=== PATIENT | male | born 2000 | race Caucasian/White ===

== ENCOUNTER 2018-08-23 18:19 | Emergency (ER) | payer SELFPAY ==
[~2018-08-23] VITALS: Ht 170.2 cm; Wt 60.5 kg
[2018-08-23 18:28] VITALS: TEMP 98.9
[2018-08-23 21:11] VITALS: BP 124/72; PULSE 72
== END 2018-08-23 20:32 | disposition home or self-care (01) ==
LOC: COL.ER 18:19
DX: S93.601A Unspecified sprain of right foot, initial encounter (principal); W20.8XXA Other cause of strike by thrown, projected or falling object, initial encounter; Y92.59 Other trade areas as the place of occurrence of the external cause
CPT/HCPCS: Q4045